=== PATIENT | female | born 1960 | race Caucasian/White ===

== ENCOUNTER 2021-06-13 10:55 | Emergency (ER) | payer OTHER, MEDICAID, SELFPAY ==
[~2021-06-13] VITALS: Ht 157.5 cm; Wt 65.8 kg
--- NOTE | 2021-06-13 11:00 | NUR ---
Placed in room 08 . Placed on telemetry monitor, blood pressure machine and pulse oximeter. To gown for exam. Side rails up.
--- NOTE | 2021-06-13 11:05 | NUR ---
MD THAPA AT BEDSIDE ASSESSING PT.
[2021-06-13 11:16] VITALS: BP_SYST 136
--- NOTE | 2021-06-13 11:30 | NUR ---
PT STATES SHE HAS PERSISTENT COUGH X 1 YEAR. PT IS STABLE, STATES SHE HAS HX OF KIDNEY CA.
[2021-06-13 11:50] LABS: ANION GAP 12 (5-15); CALCIUM 9.3 mg/dL (8.4-11.0); CHLORIDE 103 mmol/L (98-107); CREATININE 0.71 mg/dL (0.55-1.30); GLUCOSE 152 mg/dL (70-99); POTASSIUM 3.4 mmol/L (3.5-5.1); SODIUM SERUM 139 mmol/L (136-145); UREA NITROGEN, BLOOD 14 mg/dL (8-21)
[2021-06-13 11:57] LABS: GFR AFRICAN AMERICAN 107 mL/min (>90)
[2021-06-13 11:58] LABS: ALANINE AMINOTRANSFERASE 70 U/L (12-78); ALBUMIN 4.1 g/dL (3.4-4.8); ASPARTATE AMINOTRANSFERASE 37 U/L (10-37)
[2021-06-13 11:59] LABS: C-REACTIVE PROTEIN QUANT 0.5 mg/dL (0-0.5)
[2021-06-13 12:04] LABS: BASOPHILS % (AUTO) 0.7 % (0.0-2.0); EOSINOPHILS # (AUTO) 0.1 K/uL (0.0-0.4); HEMATOCRIT 41.7 % (36-48); HEMOGLOBIN 14.4 g/dL (12.0-16.0); LYMPHOCYTES # (AUTO) 2.1 K/uL (1.0-5.5); LYMPHOCYTES % (AUTO) 35.2 % (20.5-51.5); MEAN CORPUSCULAR HEMOGLOBIN 32 pg (27-31); MEAN CORPUSCULAR HGB CONC 35 % (32-36); MEAN CORPUSCULAR VOLUME 92 fL (79.0-98.0); MONOCYTES # (AUTO) 0.4 K/uL (0.0-1.0); MONOCYTES % (AUTO) 7.3 % (1.7-9.3); NEUTROPHILS # (AUTO) 3.3 K/uL (1.8-7.7); NEUTROPHILS % (AUTO) 54.8 % (40.0-70.0); PLATELET COUNT (AUTO) 247 K/uL (130-430); RED BLOOD CELL COUNT(AUTO) 4.56 MIL/uL (4.2-6.2); RED CELL DISTRIBUTION WIDTH 13.3 % (9.0-15.0); WHITE BLOOD COUNT (AUTO) 5.9 K/uL (4.8-10.8)
[2021-06-13] MEDS ORDERED: IPRATROPIUM BROM 0.5 MG/2.5 ML VIAL.NEB (ATROVENT) INH ONE (12:15)
[2021-06-13] MEDS ORDERED: ALBUTEROL SULFATE 0.083% 2.5 MG/3 ML VIAL.NEB INH ONE (12:15)
[2021-06-13] MEDS ORDERED: predniSONE 20 MG TABLET PO ONE (12:15)
--- NOTE | 2021-06-13 12:20 | NUR ---
RT at bedside.
--- NOTE | 2021-06-13 12:30 | NUR ---
Covid and influenza swab collected and sent to lab.
[2021-06-13] MEDS ORDERED: ZIT250 PO (12:49)
[2021-06-13] MEDS ORDERED: PRED20TA PO (12:49)
[2021-06-13] MEDS ORDERED: ALBU8.5H8 INH (13:10)
--- NOTE | 2021-06-13 13:19 | NUR ---
Patient given written and verbal discharge instructions and verbalizes understanding. ER MD discussed with patient the results and treatment provided. Patient in stable condition. ID arm band removed. Rx of AZITHROMYCIN, ALBUTEROL, PREDNISONE given. Patient educated on pain management and to follow up with PMD. Pain Scale /. Opportunity for questions provided and answered. Medication side effect fact sheet provided.
[2021-06-13 13:22] VITALS: BP_SYST 136
== END 2021-06-13 13:19 | disposition home or self-care (01) ==
LOC: SED 10:55
DX: J45.909 Unspecified asthma, uncomplicated (principal); Z88.5 Allergy status to narcotic agent; Z88.8 Allergy status to other drugs, medicaments and biological substances; Z91.040 Latex allergy status; Z79.899 Other long term (current) drug therapy; Z20.822 Contact with and (suspected) exposure to COVID-19
CPT/HCPCS: 36415; 71045; 80053; 83880; 84484; 85025; 86140; 86710; 87426; 93005; 94640; 99285; J7512; J7613

== ENCOUNTER 2021-07-08 11:51 | Emergency (ER) | payer OTHER, MEDICAID, SELFPAY ==
[~2021-07-08] VITALS: Ht 157.5 cm; Wt 63.5 kg
[~2021-07-08 11:51] MED LIST: ALBU8.5H8 INH; PRED20TA PO; ZIT250 PO
[2021-07-08 12:00] VITALS: BP_SYST 134
--- NOTE | 2021-07-08 12:00 | NUR ---
Patient to ER tent for evaluation. Assumed care.
--- NOTE | 2021-07-08 12:05 | NUR ---
Pt. came in to be seen and also brought [facility] to be seen both with c/o sore throat, pt. states throat started hurting today rates pain 6/10, states has cough for 10 months and would like ears evaluated d/t previous ear pain though not currently.
--- NOTE | 2021-07-08 12:20 | NUR ---
ER at bedside examining patient.
[2021-07-08] MEDS ORDERED: D-ME120S20 PO (12:30)
--- NOTE | 2021-07-08 12:50 | NUR ---
Patient given written and verbal discharge instructions and verbalizes understanding. ER MD discussed with patient the results and treatment provided. Patient in stable condition. ID arm band removed. Rx given. Patient educated on pain management and to follow up with PMD. Pain Scale 0. Opportunity for questions provided and answered. Medication side effect fact sheet provided.
[2021-07-08 13:00] VITALS: BP_SYST 134
== END 2021-07-08 12:50 | disposition home or self-care (01) ==
LOC: SED 11:51
DX: J20.9 Acute bronchitis, unspecified (principal); Z20.822 Contact with and (suspected) exposure to COVID-19; Z88.5 Allergy status to narcotic agent; Z79.899 Other long term (current) drug therapy; Z91.040 Latex allergy status
CPT/HCPCS: 99283; C9803; U0003

== ENCOUNTER 2022-10-20 14:59 | Emergency (ER) | payer OTHER, MEDICAID ==
[~2022-10-20] VITALS: Ht 157.5 cm; Wt 59.0 kg
[~2022-10-20 14:59] MED LIST changes: +D-ME120S20 PO
[2022-10-20 15:05] VITALS: BP_SYST 167
--- NOTE | 2022-10-20 15:05 | NUR ---
Patient triaged and placed in waiting room. VSS and patient appears in no acute distress at this time. Accompanied by SELF, awaiting available bed, and MD notified of need for MSE.
== END 2022-10-20 16:18 | disposition left against medical advice (07) ==
LOC: SED 14:59
DX: R10.33 Periumbilical pain (principal); R19.7 Diarrhea, unspecified; Z53.21 Procedure and treatment not carried out due to patient leaving prior to being seen by health care provider